=== PATIENT | male | born 1985 | race Caucasian/White ===

== ENCOUNTER 2017-07-13 11:02 | Emergency (ER) | payer MEDICAID ==
[~2017-07-13] VITALS: Ht 177.8 cm; Wt 94.8 kg
[2017-07-13 11:11] VITALS: BP 119/69
[2017-07-13 11:49] VITALS: BP 119/69
== END 2017-07-13 11:49 | disposition home or self-care (01) ==
LOC: MED 11:02
DX: S61.011D Laceration without foreign body of right thumb without damage to nail, subsequent encounter (principal); W45.8XXD Other foreign body or object entering through skin, subsequent encounter
CPT/HCPCS: 99281

== ENCOUNTER 2018-06-24 05:56 | Day surgery (SDC) | payer OTHER ==
[~2018-06-24] VITALS: Ht 177.8 cm; Wt 95.3 kg
[2018-06-24] MEDS ORDERED: LIDOCAINE VISCOUS 2% 20 ML UDC ONE (07:43)
== END 2018-06-24 08:25 | disposition home or self-care (01) ==
LOC: MDS 05:56 → MTU 06:03 → MDS 08:25
PROVIDERS: ATTEND Internal Medicine Gastroenterology
DX: K31.89 Other diseases of stomach and duodenum (principal); B96.81 Helicobacter pylori [H. pylori] as the cause of diseases classified elsewhere; K20.9 Esophagitis, unspecified; K29.80 Duodenitis without bleeding; E78.00 Pure hypercholesterolemia, unspecified; F17.210 Nicotine dependence, cigarettes, uncomplicated; E66.9 Obesity, unspecified; Z68.30 Body mass index [BMI] 30.0-30.9, adult; Z88.8 Allergy status to other drugs, medicaments and biological substances; Z72.89 Other problems related to lifestyle; Z98.890 Other specified postprocedural states
CPT/HCPCS: 36415; 86677

== ENCOUNTER 2018-07-14 10:26 | Emergency (ER) | payer OTHER ==
[~2018-07-14] VITALS: Ht 177.8 cm; Wt 95.7 kg
[2018-07-14 10:45] VITALS: BP 127/81
--- NOTE | 2018-07-14 10:46 | NUR ---
PATIENT AMBULATED TO BED 3 AT THIS TIME.
--- NOTE | 2018-07-14 10:52 | NUR ---
REFERRED BY URGENT CARE FOR POSSIBLE RECTAL FISTULA. BIB SELF WITH C/O RECTAL PAIN/BLEED APPROX 2 DAYS AGO AFTER RECTAL INTERCOURCE W/ PARTNER.
[2018-07-14] MEDS ORDERED: KETOROLAC 30 MG/ML VIAL IVP ONE (11:20)
[2018-07-14] MEDS ORDERED: NACL 0.9% 1,000 ML IV ONE (11:20)
[2018-07-14 11:36] LABS: BASOPHILS % (AUTO) 0.4 % (0.0-2.0); EOSINOPHILS % (AUTO) 0.5 % (0.0-4.0); HEMATOCRIT 46.1 % (36-52); HEMOGLOBIN 15.9 g/dL (12.0-18.0); LYMPHOCYTES # (AUTO) 1.1 K/uL (2.0-11.5); LYMPHOCYTES % (AUTO) 13.5 % (20.5-51.1); MEAN CORPUSCULAR HEMOGLOBIN 29 pg (27-31); MEAN CORPUSCULAR HGB CONC 34 g/dL (33-37); MEAN CORPUSCULAR VOLUME 84.5 fL (80-94); MONOCYTES # (AUTO) 0.9 K/uL (0.8-1.0); MONOCYTES % (AUTO) 11.3 % (1.7-9.3); NEUTROPHILS # (AUTO) 5.9 K/uL (1.8-7.7); NEUTROPHILS % (AUTO) 74.3 % (42.2-75.2); PLATELET COUNT (AUTO) 275 K/uL (140-450); RED BLOOD CELL COUNT(AUTO) 5.45 MIL/uL (4.20-6.10); RED CELL DISTRIBUTION WIDTH 13.6 % (11.6-13.7)
--- NOTE | 2018-07-14 12:07 | NUR ---
PT C/O "CHILLS". ORAL TEMPERATURE 99.[address] HARIRS INFORMED, NO NEW ORDERS AT THIS TIME. PT EDUCATED ON THE IMPORTANCE OF REMOVING EXTRA LINEN. VSS. ALL NEEDS ATTENDED TO AND MET. WILL CONTINUE TO MONITOR CLOSELY.
[2018-07-14 12:18] LABS: CREATININE 1.1 mg/dL (0.7-1.3); TOTAL BILIRUBIN 0.6 mg/dL (0.0-1.0)
[2018-07-14 12:34] LABS: ANION GAP 12.7 (8-16); CARBON DIOXIDE 26.1 mmol/L (21-32); POTASSIUM 3.8 mmol/L (3.5-5.1)
--- NOTE | 2018-07-14 13:26 | NUR ---
PT TAKEN TO CT
--- NOTE | 2018-07-14 13:34 | NUR ---
PT RETURNED FROM CT
--- NOTE | 2018-07-14 14:19 | NUR ---
PT C/O A GENERALIZED FEELING OF DISCOMFORT AND "CHILLS". ORAL TEMPERATURE 99.9 DR HARRIS INFORMED. NO NEW ORDERS AT THIS TIME. VSS. EXTRA CLOTHING AND LINEN REMOVED. WILL CONTINUE TO MONITOR CLOSELY.
--- NOTE | 2018-07-14 14:34 | NUR ---
DR. HARRIS BEDSIDE EVALUATING PT
[2018-07-14] MEDS ORDERED: metroNIDAZOLE 500 MG TAB PO ONE (14:50)
--- NOTE | 2018-07-14 15:02 | NUR ---
Patient discharged with v/s stable. Written and verbal after care instructions given and explained. Patient alert, oriented and verbalized understanding of instructions. Ambulatory with steady gait. All questions addressed prior to discharge. ID band removed. Patient advised to follow up with PMD. Rx of FLAGYL 500 MG, MOTRIN 800 MG, TRAMADOL 50 MG, LACTULOSE 10 GM/15 ML given. Patient educated on indication of medication including possible reaction and side effects. Opportunity to ask questions provided and answered.
[2018-07-14 15:03] VITALS: BP 126/76
== END 2018-07-14 15:02 | disposition home or self-care (01) ==
LOC: MED 10:26
DX: S36.60XA Unspecified injury of rectum, initial encounter (principal); Z88.8 Allergy status to other drugs, medicaments and biological substances; X58.XXXA Exposure to other specified factors, initial encounter; Y93.89 Activity, other specified; Y92.89 Other specified places as the place of occurrence of the external cause; Y99.8 Other external cause status
CPT/HCPCS: 36415; 74177; 80053; 81002; 85025; 96374; 99284; J1885; J7030

== ENCOUNTER 2018-07-18 09:00 | Inpatient (IN) | payer OTHER ==
[~2018-07-18] VITALS: Ht 180.3 cm; Wt 94.8 kg
[2018-07-18 09:13] VITALS: BP 139/79
--- NOTE | 2018-07-18 09:19 | NUR ---
Patient ambulated to bed 5. RN evaluating patient at bedside.
--- NOTE | 2018-07-18 09:25 | NUR ---
33 Y MALE C/O RECTAL BLEED X1 DAY. PT SEEN HERE WEDNESDAY FOR RECTAL BLEED, DIAGNOSED WITH ANAL FISURES, PT REPORTS BLEEDING HAS GOTTEN WORSE. PT REPORTS BRIGHT RED BLOOD IN STOOL AND CONSTANT BROWNISH DISCHARGE. PT REPORTS ANAL PAIN AT 5/10 THAT INCREASES WHEN HE USES RESTROOM. PAIN 10/10 DURING BOWEL MOVEMENT. LAST BM THIS AM 0800. VSS AT THIS TIME. AA0X4. BED IS DOWN, LOCKED, BED RAIL X 1, ERMD TO SEE PT. MEDHX: DENIES RX:PANTOPRAZOLE, IBUPROFEN, FLAGYL, TRAMADOL, LACTULOSE
--- NOTE | 2018-07-18 09:57 | NUR ---
DR SPENCER AT BEDSIDE EVALUATING PT
[2018-07-18] MEDS ORDERED: LEVOFLOXACIN 500 MG/D5W PREMIX 100 ML IV ONE (10:05)
[2018-07-18] MEDS ORDERED: IBUP-2213 PO (10:09)
[2018-07-18] MEDS ORDERED: METR250T2 PO (10:12)
[2018-07-18] MEDS ORDERED: LACT10SO1 PO (10:13)
--- NOTE | 2018-07-18 10:21 | NUR ---
LAB AT BEDSIDE
[2018-07-18 10:36] LABS: BASOPHILS % (AUTO) 0.3 % (0.0-2.0); EOSINOPHILS % (AUTO) 0.3 % (0.0-4.0); HEMATOCRIT 44.6 % (36-52); HEMOGLOBIN 15.2 g/dL (12.0-18.0); LYMPHOCYTES # (AUTO) 1.1 K/uL (2.0-11.5); LYMPHOCYTES % (AUTO) 18.9 % (20.5-51.1); MEAN CORPUSCULAR HEMOGLOBIN 29 pg (27-31); MEAN CORPUSCULAR HGB CONC 34 g/dL (33-37); MEAN CORPUSCULAR VOLUME 84.3 fL (80-94); MONOCYTES # (AUTO) 0.8 K/uL (0.8-1.0); MONOCYTES % (AUTO) 13.8 % (1.7-9.3); NEUTROPHILS # (AUTO) 3.9 K/uL (1.8-7.7); NEUTROPHILS % (AUTO) 66.7 % (42.2-75.2); PLATELET COUNT (AUTO) 280 K/uL (140-450); RED BLOOD CELL COUNT(AUTO) 5.28 MIL/uL (4.20-6.10); RED CELL DISTRIBUTION WIDTH 13.4 % (11.6-13.7); WHITE BLOOD COUNT (AUTO) 5.9 K/uL (4.8-10.8)
[2018-07-18 10:36] LABS: APPEARANCE,URINE CLEAR (CLEAR); BILIRUBIN,URINE NEGATIVE (NEGATIVE); BLOOD, URINE TRACE-I (NEGATIVE); COLOR,URINE DARK YELLOW (YELLOW); LEUKOCYTE ESTERASE ,URINE TRACE (NEGATIVE); NITRITE, URINE NEGATIVE (NEGATIVE); PH,URINE 5.5 (5.0-9.0); UGLUCOSE NEGATIVE (NEGATIVE)
--- NOTE | 2018-07-18 10:43 | NUR ---
LEVAQUIN STARTED 100 MLS/HR, IV 20G R AC
[2018-07-18 11:11] LABS: ANION GAP 14.3 (8-16); CARBON DIOXIDE 23.2 mmol/L (21-32); CREATININE 1.1 mg/dL (0.7-1.3); POTASSIUM 3.5 mmol/L (3.5-5.1)
[2018-07-18 11:18] LABS: ALBUMIN 3.8 g/dL (3.4-5.0); TOTAL BILIRUBIN 0.4 mg/dL (0.0-1.0)
[2018-07-18 11:22] LABS: WBC,URINE 0-5 /HPF (0-5)
--- NOTE | 2018-07-18 11:25 | NUR ---
PT AMB TO RESTROOM WITH STEADY GAIT
--- NOTE | 2018-07-18 11:28 | NUR ---
PT AMB TO BED FROM RESTROOM. RECONNECTED TO FLUIDS. PT C/O DYSURIA. DR SPENCER NOTIFIED.
--- NOTE | 2018-07-18 11:46 | NUR ---
NATHAN FINISHED RUNNING. PT TOLERATED WELL.
--- NOTE | 2018-07-18 12:51 | NUR ---
VSS AT THIS TIME. PT AA0X4. SITTING IN BED.
--- NOTE | 2018-07-18 12:56 | NUR ---
Dr. Guidry re-evaluating patient at bedside.
--- NOTE | 2018-07-18 13:10 | NUR ---
PREP PERSON DR. SPENCER FOR RECTAL EXAMINATION.
[2018-07-18] MEDS: NACL 0.9% 1,000 ML IV SCH (14:12)
[2018-07-18] MEDS ORDERED: ONDANSETRON 4 MG/2 ML VIAL IVP PRN (14:15)
[2018-07-18] MEDS ORDERED: MORPHINE SULFATE 4 MG/ML SYR IVP PRN (14:15)
[2018-07-18] MEDS ORDERED: metroNIDAZOLE 500 MG/NS PREMIX 100 ML IV SCH (14:20)
[2018-07-18 14:30] VITALS: BP 118/76
--- NOTE | 2018-07-18 14:33 | NUR ---
Patient will be admitted to care of DR LAM. Admited to [facility]. Will go to room 105B. Belongings list completed. Report to BETTY KELLEY.
--- NOTE | 2018-07-18 14:35 | NUR ---
RECEIVED PT FROM ED NURSE TRINA. PT IS AWAKE AND ALERT X 4, AND AMBULATORY. PT ON ROOM AIR, SKIN IS INTACT. PERIANAL AREA NOTED TO BE INFLAMED AND PURPLE, BUT NO OPEN SKIN AREAS. PT STATES THAT HE HAS BEEN HAVING BLOODY STOOLS AND MUCOUS DISCHARGE FROM HIS RECTUM. HE CURRENTLY REPORTS 5/10 PAIN IN THE PERIRECTAL AREA. IV SITE IS ON THE R AC 20 G, PATENT AND INTACT. MRSA NARES SWAB TAKEN, CALL LIGHT GIVEN WITHIN REACH. WILL CONTINUE TO MONITOR.
--- NOTE | 2018-07-18 15:40 | NUR ---
PT REPORTS THAT HE TOOK A 500 MG ORAL DOSE OF HIS PRESCRIBED FLAGYL TODAY AT 14:00. I CALLED DR ROWELL TO FIND OUT WHETHER OK TO GIVE THE ORDERED 14:20 DOSE OF IV FLAGYL. DR ROWELL SAID TO NOT GIVE THE 14:20 DOSE, AND TO BEGIN WITH THE NEXT SCHEDULED DOSE (21:00) Q8H.
[2018-07-18] MEDS: ACETAMINOPHEN 325 MG TAB PO PRN ×2 (18:13→23:10)
--- NOTE | 2018-07-18 18:18 | NUR ---
PT CURRENTLY HAS A TEMPERATURE OF 100.6. PRN TYLENOL ADMINISTERED AND ICE PACKS APPLIED TO PT. HEAVY BLANKETS REMOVED. WILL CONTINUE TO MONITOR.
--- NOTE | 2018-07-18 18:19 | NUR ---
RECTAL AREA SWABBED FOR THE AEROBIC/ANAEROBIC CULTURE AND SENT TO LAB.
--- NOTE | 2018-07-18 18:48 | NUR ---
PT ORAL TEMP IS 99.4 AT THIS TIME
--- NOTE | 2018-07-18 19:10 | NUR ---
PT ENDORSED TO CUT PRESSMAN IN STABLE CONDITION.
--- NOTE | 2018-07-18 19:11 | NUR ---
RECEIVED REPORT FROM AM NURSE. PT SITTING UP IN BED, AWAKE, ALERT AND ORIENTED X4. NO C/O DISCOMFORT. PT GIRLFRIEND AT BEDSIDE. PT RIGHT AC 20 G INTACT AND INFUSING WELL. SAFETY PRECAUTIONS IN PLACE, NON-SLIP SOCKS, BED IN LOW POSITION. CALL LIGHT WITHIN REACH. WILL CONTINUE TO MONITOR.
[2018-07-18 20:05] VITALS: BP 118/69
[2018-07-18] MEDS: metroNIDAZOLE 500 MG/NS PREMIX 100 ML IV SCH (20:38)
--- NOTE | 2018-07-18 21:00 | NUR ---
PT GIVEN SITZ BATH. TOLERATED WELL.
[2018-07-18] MEDS: NITROGLYCERIN 2% 1 GM PKT TP SCH (21:46)
--- NOTE | 2018-07-18 23:10 | NUR ---
PT GIVEN TYLENOL FOR 3/10 PAIN
[2018-07-19] MEDS ORDERED: AZITHROMYCIN 250 MG TAB PO SCH
[2018-07-19 00:01] VITALS: BP 116/66
--- NOTE | 2018-07-19 00:10 | NUR ---
VITALS TAKEN, PAIN REASSESSED AT THIS TIME. PT SLEEPING BUT EASILY AROUSABLE. PT DENIES PAIN. SAFETY MEASURES IN PLACE. CALL LIGHT WITHIN REACH. WILL CONTINUE TO MONITOR.
[2018-07-19 04:00] VITALS: BP 109/67
[2018-07-19] MEDS: NACL 0.9% 1,000 ML IV SCH ×2 (05:03→16:52)
[2018-07-19] MEDS: ACYCLOVIR 200 MG CAP PO SCH ×3 (05:04→21:48)
[2018-07-19] MEDS: metroNIDAZOLE 500 MG/NS PREMIX 100 ML IV SCH ×3 (05:04→21:48)
[2018-07-19] MEDS: ACETAMINOPHEN 325 MG TAB PO PRN (05:08)
[2018-07-19] MEDS: NITROGLYCERIN 2% 1 GM PKT TP SCH ×3 (05:08→21:47)
[2018-07-19 07:08] LABS: BASOPHILS % (AUTO) 0.3 % (0.0-2.0); EOSINOPHILS % (AUTO) 0.2 % (0.0-4.0); HEMATOCRIT 40.5 % (36-52); LYMPHOCYTES # (AUTO) 1.9 K/uL (2.0-11.5); LYMPHOCYTES % (AUTO) 24.2 % (20.5-51.1); MEAN CORPUSCULAR HEMOGLOBIN 29 pg (27-31); MEAN CORPUSCULAR HGB CONC 35 g/dL (33-37); MEAN CORPUSCULAR VOLUME 84.5 fL (80-94); MONOCYTES % (AUTO) 12.4 % (1.7-9.3); NEUTROPHILS # (AUTO) 4.8 K/uL (1.8-7.7); NEUTROPHILS % (AUTO) 62.9 % (42.2-75.2); PLATELET COUNT (AUTO) 271 K/uL (140-450); RED BLOOD CELL COUNT(AUTO) 4.79 MIL/uL (4.20-6.10); RED CELL DISTRIBUTION WIDTH 13.2 % (11.6-13.7); WHITE BLOOD COUNT (AUTO) 7.7 K/uL (4.8-10.8)
--- NOTE | 2018-07-19 07:08 | NUR ---
ENDORSED PT TO AM NURSE, PT IN STABLE CONDITION.
--- NOTE | 2018-07-19 07:35 | NUR ---
PATIENT WAS AWAKE, ALERT. RESPIRATION EVEN, UNLABOR ON ROOM AIR. SKIN DRY AND WARM. IV PATENT AND INTACT. DENIED PAIN AT THIS TIME. PLAN OF CARE WAS DISCUSSED WITH PATIENT. BED AT LOW POSITION, SIDE RAILS UP. CALL LIGHT WITHIN REACH
[2018-07-19 08:00] VITALS: BP 105/57
[2018-07-19 08:04] LABS: ANION GAP 15.3 (8-16); CARBON DIOXIDE 23.8 mmol/L (21-32); POTASSIUM 4.1 mmol/L (3.5-5.1)
[2018-07-19 08:16] LABS: MAGNESIUM 1.9 mg/dL (1.8-2.4); PHOSPHORUS 3.4 mg/dL (2.5-4.9)
--- NOTE | 2018-07-19 08:29 | NUR ---
PATIENT HAS BEEN SCREENED AND CATEGORIZED MODERATE NUTRITION RISK. PATIENT WILL BE SEEN WITHIN 3-5 DAYS OF ADMISSION. 07/21/18[address]
--- NOTE | 2018-07-19 09:15 | NUR ---
PATIENT COMPLAINED OF PAIN 10/10 TRIGGERED BY BM. PAIN MED WAS GIVEN PER ORDER.
[2018-07-19 09:35] VITALS: BP 105/64
--- NOTE | 2018-07-19 09:35 | NUR ---
PT C/O SOB TRIGGERED BY ANAL PAIN. PT WAS INSTRUCTED TO TAKE DEEP BREATHS AND WAS ASSISTED TO RETURN TO BED. VITAL SIGNS STABLE. WILL CONTINUE TO MONITOR.
--- NOTE | 2018-07-19 10:30 | NUR ---
PT ALERT, AWAKE. RESPIRATIONS EVEN, UNLABORED ON RA. DENIES SOB. NO DISTRESS NOTED AT THIS TIME.
--- NOTE | 2018-07-19 12:00 | NUR ---
PATIENT WAS AWAKE, ALERT. RESPIRATION EVEN, UNLABOR ON ROOM AIR. NO DISTRESS NOTED AT THIS TIME
--- NOTE | 2018-07-19 13:00 | NUR ---
PATIENT REFUSED TO HAVE NURSING LOOK AT PERIANAL WOUND, OR APPLY MEDICATION, STATED THAT HE WANTED TO DO THAT HIMSELF.
[2018-07-19] MEDS: HYDROcodone/APAP 5/325 MG 1 TAB TAB PO PRN ×2 (13:36→20:07)
--- NOTE | 2018-07-19 14:05 | NUR ---
PATIENT WAS AWAKE, ALERT. RESPIRATION EVEN, UNLABOR ON ROOM AIR. MEDS WERE GIVEN PER ORDER. PATIENT REQUESTED TO PUT NITROGLYCERIN ON HIMSELF. PAIN MED WAS GIVEN PRIOR TO APPLICATION PER PATIENT REQQUEST. NO DISTRESS NOTED AT THIS TIME
--- NOTE | 2018-07-19 15:01 | NUR ---
PATIENT WAS GIVEN SITZ BATH. PATIENT TOLERATED WELL.
[2018-07-19 16:00] VITALS: BP 115/58
--- NOTE | 2018-07-19 16:00 | NUR ---
PT RESTING IN BED. RESPIRATIONS EVEN AND UNLABORED. NO S/S OF DISTRESS. CALL LIGHT WITHIN REACH.
--- NOTE | 2018-07-19 18:26 | NUR ---
PT IS ALERT, AWAKE IN BED. NO S/S OF DISTRESS. CALL LIGHT WITHIN REACH.
--- NOTE | 2018-07-19 19:16 | NUR ---
ENDORSEMENT GIVEN TO TALENT DEVELOPMENT ANALYST NURSE. PATIENT IS STABLE AT THIS TIME
--- NOTE | 2018-07-19 19:17 | NUR ---
RECEIVED REPORT FROM AM NURSE. PT SITTING IN BED, AWAKE, ALERT AND ORIENTED X4. PT CURRENTLY WATCHING TV. RIGHT AV 20G IV INTACT AND INFUSING WELL. NO C/O DISCOMFORT AT THIS TIME. SAFETY MEASURES IN PLACE. CALL LIGHT WITHIN REACH. WILL CONTINUE TO MONITOR.
--- NOTE | 2018-07-19 20:05 | NUR ---
STOOL SAMPLE COLLECTED FROM PT. NO BLOOD VISIBLE IN STOOL. PT C/O OF DISCOMFORT FROM RECTAL AREA.
--- NOTE | 2018-07-19 22:00 | NUR ---
ROUNDED ON PT. PT AWAKE IN BED TALKING ON PHONE. PT RECEIVED URINAL REQUESTED. URINAL PLACED AT BEDSIDE. SAFETY PRECAUTIONS IN PLACE. CALL LIGHT WITHIN IN REACH. WILL CONTINUE TO MONITOR.
[2018-07-20] VITALS: BP 100/54
--- NOTE | 2018-07-20 00:05 | NUR ---
ROUNDED ON PT. ABLE TO VERBALIZE NEEDS. PT BROUGHT EAR PLUGS REQUESTED. SAFETY MEASURES IN PLACE. URINAL AT BEDSIDE. CALL LIGHT WITHIN REACH. WILL CONTINUE TO MONITOR.
--- NOTE | 2018-07-20 02:01 | NUR ---
ROUNDED ON PT. PT SLEEPING IN BED. BREATHING EQUAL AND UNLABORED. NO VISIBLE SIGNS OF DISTRESS. CALL LIGHT WITHIN REACH.
--- NOTE | 2018-07-20 04:00 | NUR ---
ROUNDED ON PT. PT SLEEPING, NO VISIBLE SIGNS OF DISTRESS. SAFETY MEASURES IN PLACE. CALL LIGHT WITHIN REACH.
[2018-07-20] MEDS: NITROGLYCERIN 2% 1 GM PKT TP SCH ×3 (05:00→20:39)
[2018-07-20] MEDS: metroNIDAZOLE 500 MG/NS PREMIX 100 ML IV SCH ×3 (05:24→20:39)
[2018-07-20] MEDS: ACYCLOVIR 200 MG CAP PO SCH ×3 (05:24→20:39)
[2018-07-20] MEDS: HYDROcodone/APAP 5/325 MG 1 TAB TAB PO PRN ×3 (06:05→20:35)
--- NOTE | 2018-07-20 06:05 | NUR ---
NORCO GIVEN FOR 6/10 HEADACHE.
[2018-07-20] MEDS: NACL 0.9% 1,000 ML IV SCH ×2 (06:12→19:32)
[2018-07-20 07:03] LABS: BASOPHILS % (AUTO) 0.3 % (0.0-2.0); EOSINOPHILS # (AUTO) 0.1 K/uL (0-0.4); EOSINOPHILS % (AUTO) 0.6 % (0.0-4.0); HEMATOCRIT 39.6 % (36-52); HEMOGLOBIN 13.5 g/dL (12.0-18.0); LYMPHOCYTES # (AUTO) 1.9 K/uL (2.0-11.5); LYMPHOCYTES % (AUTO) 23.8 % (20.5-51.1); MEAN CORPUSCULAR HEMOGLOBIN 29 pg (27-31); MEAN CORPUSCULAR HGB CONC 34 g/dL (33-37); MEAN CORPUSCULAR VOLUME 84.9 fL (80-94); MONOCYTES % (AUTO) 12.6 % (1.7-9.3); NEUTROPHILS % (AUTO) 62.7 % (42.2-75.2); PLATELET COUNT (AUTO) 273 K/uL (140-450); RED BLOOD CELL COUNT(AUTO) 4.67 MIL/uL (4.20-6.10); RED CELL DISTRIBUTION WIDTH 13.2 % (11.6-13.7)
--- NOTE | 2018-07-20 07:05 | NUR ---
ENDORSED TO AM NURSE. PT IN STABLE CONDITION.
[2018-07-20 07:24] LABS: ANION GAP 12.1 (8-16); CARBON DIOXIDE 24.6 mmol/L (21-32); CREATININE 0.8 mg/dL (0.7-1.3); POTASSIUM 3.7 mmol/L (3.5-5.1)
--- NOTE | 2018-07-20 07:30 | NUR ---
RECEIVED REPORT FROM TIME BUYER NURSE. PT AWAKE, ALERT IN BED. RESPIRATIONS EVEN AND UNLABORED ON RA. SKIN DRY AND WARM. IV PATENT AND INTACT. PT DENIES PAIN, N/V. POC WAS DISCUSSED WITH PATIENT. BED AT LOW POSITION. SIDERAILS X2 ARE UP. CALL LIGHT WITHIN REACH.
[2018-07-20 07:45] LABS: MAGNESIUM 1.9 mg/dL (1.8-2.4)
[2018-07-20 08:00] VITALS: BP 127/79
--- NOTE | 2018-07-20 09:30 | NUR ---
PATIENT WAS AWAKE, ALERT. RESPIRATION EVEN, UNLABOR ON ROOM AIR. MEDS WERE GIVEN PER ORDER. WOUND WAS CLEANSED WITH NS, PADDED DRY. PATIENT TOLERATED WELL
--- NOTE | 2018-07-20 10:28 | NUR ---
SPOKE TO [facility] AT [phone], [facility] IS CONTRACTED WITH THEM. CLINICALS FAXED AT [phone]. AWATING FOR AUTHORIZATION.
--- NOTE | 2018-07-20 10:31 | NUR ---
[facility] [phone] ACCEPTED THE PATIENT. WAITING FOR AUTHORIZATION FROM [facility].
--- NOTE | 2018-07-20 10:43 | NUR ---
CALLED OFFICE OF DR BENAVIDES, SPOKE TO LENNY, FOLLOW-UP APPOINTMENT MADE ON 07/27/18 AT 10AM, [address] [place] [address]. COPY OF APPOINTMENT GIVEN TO PATIENT AND WARREN ROGERS MADE AWARE.
--- NOTE | 2018-07-20 10:48 | NUR ---
Patient stated that his plans after discharge was to return to significant other at his home address.
--- NOTE | 2018-07-20 12:00 | NUR ---
PT IS AWAKE, ALERT. DENIES PAIN AT THIS TIME. RESPIRATIONS UNLABORED AND EVEN ON R/A. NO DISTRESS NOTED. CALL LIGHT WITHIN REACH.
[2018-07-20] MEDS: Z-GUARD PASTE TP SCH (12:26)
--- NOTE | 2018-07-20 12:41 | NUR ---
WOUND CARE EVALUATION NOTE: REASON FOR EVALUATION:JOBY-ANAL CELLULITIS SKIN ASSESSMENT DONE WITH THIS 33 Y/O MALE PT ADMITTED TO [facility] WITH INITIAL DX RECTAL PAIN AND BLEEDING. PAST MEDICAL HX INCLUDES RECENT H. PYLORI IN JUNE 2018. PT. REPORTED UNSAFE SEXUAL INTERCOURSE AND STD SCREEN IS WARRANTED. ALL ABOVE INFORMATION OBTAINED FROM ADMISSION H&P. AND PT. PT IS AAX4. SKIN IS WARM AND DRY, BLE HAIR GROWTH, NO EDEMA. PT. HAS BEEN CONSULTED BY ID AND GI WITH PLAN OF CARE WRITTEN ON 07/18/[address] SAUCEDO. PLAN OF CARE DISCUSSED WITH PRIMARY RN. INTEGUMENTARY: -JOBY-ANAL SMALL PIN POINTS LESIONS, WOUND BED IS RED, MOIST, JOBY WOUND SKIN WARM, ERYTHEMA, SWELLING VERY SENSITIVE TO TOUCH, PAIN 7/10 -MAD TO RIGHT AND LEFT INNER BUTTOCKS, SKIN REDNESS AND INTACT RECOMMENDATIONS: -CONTINUE CURRENT ANTIBIOTIC, PAIN CONTROL AND NITROGLYCERINE OINT. PLANS BY DR. SAUCEDO -MAY HAVE SITZ BATH Q 12 H, PAT AREA DRY APPLY NITROGLYCERINE OINT TO JOBY-ANAL, AND THIN LAYER OF Z- GUARD TO R/L INNER BUTTOCKS MAD AND LEAVE IT OPEN TO AIR BID -KEEP AREA DRY AND CLEAN AT ALL TIMES -CONTINUE TO FOLLOW UP PRIMARY PHYSICIAN OUTPATIENT UPON DISCHARGED ALL ABOVE RECOMMENDATIONS DISCUSSED WITH PRIMARY RN. PLEASE CONTACT WOUND CARE NURSE FOR ANY QUESTION AND CHANGE OF WOUND CONDITION.
--- NOTE | 2018-07-20 13:43 | NUR ---
RECEIVED FAX AUTHORIZATION FROM [facility] AUTH # [id number] FOR HOME HEALTH. CALLED [facility], SPOKE TO DOMINGO, THEIR NURSE WILL BE SEEING THE PATIENT TOMORROW. PER DOMINGO SHE SPOKE TO THE PATIENT AND CONFIRMED THE ADDRESS. PRIMARY RN MADE AWARE.
--- NOTE | 2018-07-20 14:10 | NUR ---
PT ALERT, AWAKE IN BED. OCCUPIED IN LAPTOP. NO C/O PAIN. BED IN LOW POSITION, CALL LIGHT WITHIN REACH, SAFETY MEASURES IN PLACE.
--- NOTE | 2018-07-20 15:55 | NUR ---
PT ALERT, AWAKE, ORIENTED X4. PT WAS OFFERED SITZ BATH, BUT REFUSED AT THIS TIME. NO C/O PAIN. SAFETY MEASURES IN PLACE, BED ON LOW POSITION, PERSONAL BELONGINGS AND CALL LIGHT WITHIN REACH.
[2018-07-20 16:00] VITALS: BP 123/75
--- NOTE | 2018-07-20 18:10 | NUR ---
PT IS AWAKE, ALERT, SITTING UPRIGHT IN BED. VISITORS AT BEDSIDE. NO S/S OF DISTRESS AT THIS TIME. IV PATENT AND INTACT. CALL LIGHT WITHIN REACH.
--- NOTE | 2018-07-20 19:16 | NUR ---
ENDORSEMENT WAS GIVEN TO CEMENT FINISHER NURSE. PATIENT IS STABLE AT THIS TIME.
--- NOTE | 2018-07-20 19:17 | NUR ---
RECD. RESTING IN BED, AWAKE, A/OX4. RESPIRATION EVEN AND UNLABORED. IV OF NS AT 75 ML/HR INFUSING, RIGHT AC G 20. WATCHING TV. PLEASANT AND INDEPENDENT. PLAN OF CARE FOR THE SHIFT DISCUSSED. VERBALIZED UNDERSTANDING. DENIES PAIN 0/10.
--- NOTE | 2018-07-20 19:47 | NUR ---
Patient's Plan of Care was discussed and reviewed with JUNK DEALER: GEORGE PEGUERO
--- NOTE | 2018-07-20 20:39 | NUR ---
WATCHING TV. DUE PO MEDICATIONS GIVEN.
--- NOTE | 2018-07-20 20:46 | NUR ---
ADMINISTERED IV MEDICATIONS. PATIENT RESTING IN BED. NO SIGNS OF DISTRESS ON RA.
--- NOTE | 2018-07-20 21:30 | NUR ---
SITZ BATH GIVEN. TOLERATED WELL.
--- NOTE | 2018-07-20 22:00 | NUR ---
STILL WATCHING TV. 1 JELLO AND WARM BLANKET GIVEN REQUESTED.
[2018-07-20] MEDS: ACETAMINOPHEN 325 MG TAB PO PRN (22:26)
--- NOTE | 2018-07-21 | NUR ---
RESTING IN BED READY TO SLEEP, VS STABLE. AFEBRILE.
[2018-07-21] MEDS: Z-GUARD PASTE TP SCH ×2 (01:10→12:31)
--- NOTE | 2018-07-21 03:30 | NUR ---
AMBULATED TO BR TO HAVE BM BUT UNABLE TO HAVE ONE, WENT BACK TO BED AFTER FEW MINUTES AND STATED HE WILL SLEEP FOR A WHILE THEN GO BACK AGAIN TO TRY TO HAVE BM.
[2018-07-21] MEDS: HYDROcodone/APAP 5/325 MG 1 TAB TAB PO PRN ×2 (03:32→09:04)
[2018-07-21] MEDS: metroNIDAZOLE 500 MG/NS PREMIX 100 ML IV SCH ×2 (04:28→12:30)
[2018-07-21] MEDS: ACYCLOVIR 200 MG CAP PO SCH ×2 (04:30→12:30)
--- NOTE | 2018-07-21 04:32 | NUR ---
ADMINISTERED SCHEDULED IV MEDICATIONS. PATIENT TOLERATED WELL. IV INFUSING WELL.
--- NOTE | 2018-07-21 07:03 | NUR ---
WANTS ANOTHER MEDICATION INSTEAD OF NITROGLYCERIN, STATED IT'S BURNING WHEN APPLIED, WILL ENDORSE TO AM NURSE TO INFORM MD. CONDITION REMAIN STABLE.
--- NOTE | 2018-07-21 07:04 | NUR ---
RECEIVED REPORT FROM METAL COATER OPERATOR NURSE. PATIENT LYING DOWN IN BED. NO DISTRESS NOTED. DENIES ANY PAIN AT THIS TIME. AAOX4, CALM, COOPERATIVE, SKIN COLOR APPROPRIATE TO ETHNICITY, WARM TO TOUCH. HAS PERIANAL BLISTERS NOTED, ZGUARD CREAM ON BLISTERS PER MD ORDERS. IV SITE INTACT, PATENT, AND INFUSING IVF PER MD ORDERS. RESPIRATIONS EVEN, UNLABORED, ON ROOM AIR. REVIEWED PLAN OF CARE WITH PATIENT. PATIENT VERBALIZED UNDERSTANDING. SAFETY MEASURES IN PLACE, CALL LIGHT WITHIN REACH. WILL CONTINUE TO MONITOR.
[2018-07-21 07:05] LABS: ANION GAP 13.4 (8-16); CARBON DIOXIDE 24.7 mmol/L (21-32); CREATININE 0.8 mg/dL (0.7-1.3); POTASSIUM 4.1 mmol/L (3.5-5.1)
[2018-07-21 07:12] LABS: BASOPHILS % (AUTO) 0.5 % (0.0-2.0); EOSINOPHILS # (AUTO) 0.1 K/uL (0-0.4); EOSINOPHILS % (AUTO) 1.5 % (0.0-4.0); HEMOGLOBIN 13.4 g/dL (12.0-18.0); LYMPHOCYTES # (AUTO) 2.2 K/uL (2.0-11.5); LYMPHOCYTES % (AUTO) 33.8 % (20.5-51.1); MAGNESIUM 2.1 mg/dL (1.8-2.4); MEAN CORPUSCULAR HEMOGLOBIN 29 pg (27-31); MEAN CORPUSCULAR HGB CONC 35 g/dL (33-37); MEAN CORPUSCULAR VOLUME 84.4 fL (80-94); MONOCYTES # (AUTO) 0.8 K/uL (0.8-1.0); MONOCYTES % (AUTO) 12.1 % (1.7-9.3); NEUTROPHILS # (AUTO) 3.3 K/uL (1.8-7.7); NEUTROPHILS % (AUTO) 52.1 % (42.2-75.2); PHOSPHORUS 3.4 mg/dL (2.5-4.9); PLATELET COUNT (AUTO) 274 K/uL (140-450); RED BLOOD CELL COUNT(AUTO) 4.62 MIL/uL (4.20-6.10); RED CELL DISTRIBUTION WIDTH 13.1 % (11.6-13.7); WHITE BLOOD COUNT (AUTO) 6.4 K/uL (4.8-10.8)
[2018-07-21 08:00] VITALS: BP 122/83
[2018-07-21] MEDS ORDERED: LEVO750T2 PO (08:48)
[2018-07-21] MEDS ORDERED: ACYC400T PO (08:48)
--- NOTE | 2018-07-21 08:50 | NUR ---
DR. VIRAMONTES AT BEDSIDE REVIEWING PLAN OF CARE WITH PATIENT. WILL CONTINUE TO MONITOR.
[2018-07-21] MEDS: NACL 0.9% 1,000 ML IV SCH (08:52)
[2018-07-21] MEDS: NITROGLYCERIN 2% 1 GM PKT TP SCH (09:00)
--- NOTE | 2018-07-21 09:10 | NUR ---
PATIENT COMPLAINS OF PAIN, NORCO GIVEN. OTHER SCHEDULED MEDICATIONS DUE GIVEN. NITRO PATCH NOT GIVEN AT THIS TIME PATIENT REFUSED, SAYS IT COVARRUBIAS. WILL CONTINUE TO MONITOR.
--- NOTE | 2018-07-21 12:21 | NUR ---
PATIENT SITTING IN BED WATCHING TV. DISCHARGE INSTRUCTIONS PROVIDED TO PATIENT IN PREFERRED LANGUAGE OF ARABIC. INSTRUCTIONS ON FOLLOW-UP WITH PCP, DIET REGIMEN, WOUND CARE REGIMEN AND FOLLOWING UP ON PENDING LAB RESULTS GIVEN TO PATIENT. ANSWERED ALL OF PATIENT'S QUESTIONS REGARDING DISCHARGE. ALL BELONGINGS WITH PATIENT. PATIENT AWAITING FOR FRIEND TO COME PICK HIM UP FOR DISCHARGE. WILL CONTINUE TO MONITOR.
--- NOTE | 2018-07-21 12:34 | NUR ---
PATIENT SITTING DOWN IN BED WITH LUNCH TRAY IN FRONT. NO DISTRESS NOTED. DENIES ANY PAIN. SCHEDULED MEDICATIONS DUE GIVEN. WILL CONTINUE TO MONITOR. AWAITING FOR FRIEND TO ARRIVE TO TAKE PATIENT HOME.
--- NOTE | 2018-07-21 14:10 | NUR ---
PATIENT'S RIDE ARRIVED AT [facility]. IV SITE REMOVED WITH MINIMAL BLOOD AND LUMEN COMPLETELY INTACT. ID BANDS REMOVED. ESCORTED PATIENT DOWN TO LOBBY VIA STEADY AMBULATION. ALL BELONGINGS WITH PATIENT. PATIENT DISCHARGED TO HOME AT THIS TIME IN STABLE CONDITION.
[2018-07-21 17:10] LABS: CHLAMYDIA TRACHOMATIS AMP DNA NEGATIVE (NEGATIVE)
== END 2018-07-21 14:10 | disposition home or self-care (01) | DRG 254 ==
LOC: MED 09:00 → MTU 14:15
PROVIDERS: ADMIT Internal Medicine Pulmonary Disease; ATTEND Internal Medicine Pulmonary Disease
DX: K61.1 Rectal abscess (principal); K92.2 Gastrointestinal hemorrhage, unspecified; E86.9 Volume depletion, unspecified; B00.9 Herpesviral infection, unspecified; B36.9 Superficial mycosis, unspecified; D64.9 Anemia, unspecified; F12.90 Cannabis use, unspecified, uncomplicated; K59.00 Constipation, unspecified; L03.317 Cellulitis of buttock; K62.89 Other specified diseases of anus and rectum; Z86.19 Personal history of other infectious and parasitic diseases
CPT/HCPCS: 36415; 80048; 80053; 81001; 82272; 83735; 84100; 85025; 86592; 87040; 87045; 87070; 87081; 87086; 87491; 96365; 99285; J0696; J1956; J2270; J3490; J7030; J7060